=== PATIENT | female | born 1945 | race Caucasian/White ===

== ENCOUNTER 2016-07-11 16:35 | Emergency (ER) | payer OTHER ==
[~2016-07-11] VITALS: Ht 167.6 cm; Wt 72.2 kg
[~2016-07-11 16:35] MED LIST: ALBU1AER9 INH; ASPI81TA28 PO; ATV/1 PO; BECL0.3A INH; COEN1CAP7 PO; HYDR12.56 PO; LPT/20 PO; MELO15TA4 PO; METO50TA7 PO; MULTTAB PO; OMEP40CA41 PO; PRED1SUS3
[2016-07-11 16:43] VITALS: TEMP 36.9; Ht 167.6 cm; Wt 72.2 kg
[2016-07-11] MEDS ORDERED: PROAIR INH (17:00)
[2016-07-11] MEDS ORDERED: QVRINH80 INH (17:00)
[2016-07-11] MEDS ORDERED: HYDROmorphone INJ 0.5 MG/0.5 ML SYR IV STA (17:15)
[2016-07-11] MEDS ORDERED: ONDANSETRON INJ 2 MG/ML 2 ML VIAL IV STA (17:15)
--- NOTE | 2016-07-11 17:15 | DIAGNOSTIC IMAGING REPORT ---
CHEST ONE VIEW PORTABLE CLINICAL HISTORY: CHEST PAIN dyspnea COMPARISON STUDY: 01/21/2014 FINDINGS: Minimal parenchymal infiltrate left base. Lungs otherwise appear clear. Diaphragms smooth. Costophrenic angles are sharp. IMPRESSION: Small parenchymal infiltrate versus atelectasis left base. Electronically signed by: Anand Knox M.D. 07/11/2016 5:14 PM Dictated Date/Time: 07/11/2016 5:13 PM
[2016-07-11 17:29] LABS: BASO % 0.2 %; BASO ABS # 0.01 K/uL (0-0.2); COMPLETE YES; HEMATOCRIT 42.8 % (37-47); IG% 0.2 %; LYMPH % 32.2 %; LYMPH ABS # 1.65 K/uL (1.2-3.4); MEAN CELL VOLUME 87.9 fL (80-100); MEAN CORPUSCULAR HEMOGLOBIN 31.6 pg (25-34); MEAN PLATELET VOLUME 9.9 fL (7.4-10.4); MONO % 10.2 %; NEUT % 56.2 %; PLATELET COUNT 212 K/uL (130-400); RED BLOOD COUNT 4.87 M/uL (4.2-5.4); WHITE BLOOD COUNT 5.12 K/uL (4.8-10.8)
[2016-07-11 17:30] LABS: POINT OF CARE TROPONIN I 0.02 ng/ml (0-0.045)
[2016-07-11 17:40] VITALS: O2SAT 94
[2016-07-11 17:59] LABS: ALKALINE PHOSPHATASE 125 U/L (45-117); ALT/SGPT 47 U/L (12-78); AST/SGOT 36 U/L (15-37); BLOOD UREA NITROGEN 12 mg/dl (7-18); BUN/CREATININE RATIO 15.1 (10-20); CALCIUM 8.6 mg/dl (8.5-10.1); CARBON DIOXIDE 30 mmol/L (21-32); CHLORIDE 105 mmol/L (98-107); CKMB/CK RATIO 1.3 (0-3.0); CREATININE 0.78 mg/dl (0.60-1.20); GLUCOSE 98 mg/dl (70-99); POTASSIUM 3.9 mmol/L (3.5-5.1); SODIUM 141 mmol/L (136-145)
[2016-07-11 18:19] LABS: INR 0.9 (0.9-1.1); PARTIAL THROMBOPLASTIN RATIO 0.9
[2016-07-11] MEDS ORDERED: OPTIRAY 320 IV PRN (18:45)
--- NOTE | 2016-07-11 19:20 | DIAGNOSTIC IMAGING REPORT ---
CT ANGIOGRAPHY OF THE CHEST, PULMONARY EMBOLUS PROTOCOL CLINICAL HISTORY: Chest and back pain. COMPARISON STUDY: Chest radiograph performed earlier today and CT of the chest, abdomen pelvis December 16, 2012. TECHNIQUE: Following IV administration of 94 mL of Optiray-320, helical axial images of the chest were obtained utilizing the pulmonary embolus protocol. Maximal intensity projections and sagittal and coronal reformats were viewed on an independent 3D workstation. IV contrast was administered without complication. CT DOSE: 411.17 mGy.cm FINDINGS: No pulmonary emboli are identified. There is no evidence of thoracic aortic dissection. The size of the heart is at the upper limits of normal. There is no pericardial effusion. There are no enlarged thoracic lymph nodes. Bilateral lower lobe and lingular opacity is present. Central airways are patent. There is no pneumothorax. Bony thorax and upper abdomen are unremarkable with exception of fatty infiltration of the liver with sparing within the lateral segment. IMPRESSION: 1. No pulmonary emboli identified. 2. Bilateral lower lobe and lingular opacity which favors atelectasis. An infectious process could appear similar although is considered less likely. 3. Fatty infiltration of the liver with suspected sparing within the lateral segment. Electronically signed by: Joey Bryant M.D. 07/11/2016 7:19 PM Dictated Date/Time: 07/11/2016 7:06 PM
[2016-07-11] MEDS ORDERED: LEVOFLOXACIN 250 MG TAB PO STA (21:07)
[2016-07-11 21:15] VITALS: BP 118/59; PULSE 60; O2SAT 99
[2016-07-11] MEDS ORDERED: NORCO 5/325MG HOME PACK PO ONE (21:15)
[2016-07-11] MEDS ORDERED: HYDR-5688 PO (21:21)
[2016-07-11] MEDS ORDERED: LEVO-366 PO (21:21)
--- NOTE | 2016-07-12 01:03 | EMERGENCY ROOM VISIT NOTE ---
History Report prepared by Laurel: Kym Bravo Under the Supervision of: Dr. Derik Renner M.D. First contact with patient: 16:49 Chief Complaint: CHEST PAIN Stated Complaint: CHEST AND BACK PAIN- PHYSICIAN REFERRED History of Present Illness The patient is a 71 year old female who presents to the Emergency Room with complaints of constant central upper back pain that began yesterday. She states that the pain feels like it is behind her sternum. The pain is worse with inhalation, sneezing, coughing, blowing her nose, and position changes. Her pain increases to a 10/10 with movement. Her had to tie her shoes this evening because she could not lean over. Laying on her back also makes it ache. She slept in a chair last night. Per patient's , the patient has been packing boxes to help her mother over the past few weeks. She has not done any particularly heavy lifting. She was not packing any boxes this week. She does not recall any other straining or exertion that could have caused her pain. Denies any recent falls. Earlier today, she was seen by her PCP and had an EKG and blood work. Per PCP recommendation, the patient took a Meloxicam this evening which she already had at home. It did help slightly, but she still has significant pain with movement. This evening, she was called by the office and referred to the ED for additional testing. The patient reports a family history of coronary artery disease. There is no family history of blood clots or aneurysms. Pt denies LOC, headache, fevers, chills, diaphoresis, visual changes , neck pain, chest pain, nausea, vomiting, abdominal pain, melena, hematochezia , urinary symptoms, numbness, weakness, lymphadenopathy, rash, or other complaints. Source of History: patient Onset: yesterday Position: back (central upper) Symptom Intensity: 10/10 with movement Timing: constant Modifying Factors (Worsening): movement, other (inhalation, coughing, sneezing, blowing nose, position changes) Modifying Factors (Relieving): other (Meloxicam) Review of Systems See HPI for pertinent positives and negatives. A total of ten systems were reviewed and were otherwise negative. Past Medical & Surgical Medical Problems: (1) Anxiety State Nos (2) Asthma, Unspecified (3) Esophageal Reflux (4) Heart disease (5) HYPERLIPIDEMIA NEC/NOS (6) Hyperlipidemia Nec/Nos (7) Hypertension Nos Family History Cancer Heart disease Hypertension Social History Smoking Status: Former Smoker Alcohol Use: none Drug Use: none Marital Status: Housing Status: lives with significant other Occupation Status: employed Current/Historical Medications Scheduled Aspirin (Aspirin Ec), 81 MG PO QAM Atorvastatin (Atorvastatin Calcium), 20 MG PO HS Coenzyme Q10 (Ubidecarenone) (Coq10), 1 CAP PO QPM Hydrochlorothiazide (Hctz), 12.5 MG PO QAM Levofloxacin (Levaquin), 500 MG PO DAILY Metoprolol Succ (Toprol Xl) (Toprol-Xl), 50 MG PO QAM Multivitamins/Minerals (Mvi With Minerals), 1 PKT PO QAM Omeprazole (Prilosec), 40 MG PO BID Scheduled PRN Beclomethasone Dip (Qvar), 2 PUFF INH BID PRN for SOB/Wheezing Hydrocodone/Acetaminophen 5MG/325MG ([place] 5MG/325MG), 1-2 TABS PO Q6H PRN for Pain Lorazepam (Ativan), 1 MG PO TID PRN for Anxiety Meloxicam (Mobic), 15 MG PO DAILY PRN for Pain [Proair], 2 PUFF INH QID PRN for Wheezing Allergies Coded Allergies: Milk (Verified Allergy, Unknown, 02/23/15) Pseudoephedrine (Verified Allergy, Unknown, 02/23/15) Physical Exam Vital Signs Date Time Temp Pulse Resp B/P Pulse Ox O2 Delivery O2 Flow Rate FiO2 07/11/16 21:15 60 18 118/59 99 Room Air 07/11/16 18:32 67 20 99/61 95 Room Air 07/11/16 17:40 94 Room Air 07/11/16 17:40 94 Room Air 07/11/16 16:59 79 07/11/16 16:43 36.9 73 20 140/68 95 Room Air Physical Exam GENERAL: Awake, alert, uncomfortable-appearing, in no distress HENT: Normocephalic, atraumatic. Oropharynx unremarkable. EYES: Normal conjunctiva. Sclera non-icteric. NECK: Supple. No nuchal rigidity. FROM. No JVD. RESPIRATORY: Clear to auscultation. CARDIAC: Regular rate, normal rhythm. Extremities warm and well perfused. Pulses equal. ABDOMEN: Soft, non-distended. No tenderness to palpation. No rebound or guarding. No masses. RECTAL: Deferred. MUSCULOSKELETAL: Chest examination reveals no tenderness. The back is symmetrical on inspection without obvious abnormality. Thoracic midline tenderness to palpation. There is no CVA tenderness to palpation. No joint edema. LOWER EXTREMITIES: Calves are equal size bilaterally and non-tender. No edema. No discoloration. NEURO: Normal sensorium. No sensory or motor deficits noted. SKIN: No rash or jaundice noted. Medical Decision & Procedures ER Provider Diagnostic Interpretation: Radiology results as stated below per my review and radiologist interpretation CHEST ONE VIEW PORTABLE CLINICAL HISTORY: CHEST PAIN dyspnea COMPARISON STUDY: 01/21/2014 FINDINGS: Minimal parenchymal infiltrate left base. Lungs otherwise appear clear. Diaphragms smooth. Costophrenic angles are sharp. IMPRESSION: Small parenchymal infiltrate versus atelectasis left base. Electronically signed by: Anand Knox M.D. 07/11/2016 5:14 PM Dictated Date/Time: 07/11/2016 5:[address] ANGIOGRAPHY OF THE CHEST, PULMONARY EMBOLUS PROTOCOL CLINICAL HISTORY: Chest and back pain. COMPARISON STUDY: Chest radiograph performed earlier today and CT of the chest, abdomen pelvis December 16, 2012. TECHNIQUE: Following IV administration of 94 mL of Optiray-320, helical axial images of the chest were obtained utilizing the pulmonary embolus protocol. Maximal intensity projections and sagittal and coronal reformats were viewed on an independent 3D workstation. IV contrast was administered without complication. CT DOSE: 411.17 mGy.cm FINDINGS: No pulmonary emboli are identified. There is no evidence of thoracic aortic dissection. The size of the heart is at the upper limits of normal. There is no pericardial effusion. There are no enlarged thoracic lymph nodes. Bilateral lower lobe and lingular opacity is present. Central airways are patent. There is no pneumothorax. Bony thorax and upper abdomen are unremarkable with exception of fatty infiltration of the liver with sparing within the lateral segment. IMPRESSION: 1. No pulmonary emboli identified. 2. Bilateral lower lobe and lingular opacity which favors atelectasis. An infectious process could appear similar although is considered less likely. 3. Fatty infiltration of the liver with suspected sparing within the lateral segment. Electronically signed by: Joey Bryant M.D. 07/11/2016 7:19 PM Dictated Date/Time: 07/11/2016 7:06 PM Laboratory Results 07/11/16 17:05 Red Blood Count 4.87, Mean Corpuscular Volume 87.9, Mean Corpuscular Hemoglobin 31.6, Mean Corpuscular Hemoglobin Concent 36.0, Mean Platelet Volume 9.9, Neutrophils (%) (Auto) 56.2, Lymphocytes (%) (Auto) 32.2, Monocytes (%) (Auto) 10.2, Eosinophils (%) (Auto) 1.0, Basophils (%) (Auto) 0.2, Neutrophils # (Auto ) 2.88, Lymphocytes # (Auto) 1.65, Monocytes # (Auto) 0.52, Eosinophils # (Auto ) 0.05, Basophils # (Auto) 0.01 07/11/16 17:05 Test 07/11/16 17:05 07/11/16 17:10 07/11/16 18:00 White Blood Count 5.12 K/uL (4.8-10.8) Red Blood Count 4.87 M/uL (4.2-5.4) Hemoglobin 15.4 g/dL (12.0-16.0) Hematocrit 42.8 % (37-47) Mean Corpuscular Volume 87.9 fL (80-100) Mean Corpuscular Hemoglobin 31.6 pg (25-34) Mean Corpuscular Hemoglobin Concent 36.0 g/dl (32-36) Platelet Count 212 K/uL (130-400) Mean Platelet Volume 9.9 fL (7.4-10.4) Neutrophils (%) (Auto) 56.2 % Lymphocytes (%) (Auto) 32.2 % Monocytes (%) (Auto) 10.2 % Eosinophils (%) (Auto) 1.0 % Basophils (%) (Auto) 0.2 % Neutrophils # (Auto) 2.88 K/uL (1.4-6.5) Lymphocytes # (Auto) 1.65 K/uL (1.2-3.4) Monocytes # (Auto) 0.52 K/uL (0.11-0.59) Eosinophils # (Auto) 0.05 K/uL (0-0.5) Basophils # (Auto) 0.01 K/uL (0-0.2) RDW Standard Deviation 42.4 fL (36.4-46.3) RDW Coefficient of Variation 13.2 % (11.5-14.5) Immature Granulocyte % (Auto) 0.2 % Immature Granulocyte # (Auto) 0.01 K/uL (0.00-0.02) Anion Gap 6.0 mmol/L (3-11) Est Creatinine Clear Calc Drug Dose 69.2 ml/min Estimated GFR () 89.9 Estimated GFR (Non- 77.6 BUN/Creatinine Ratio 15.1 (10-20) Calcium Level 8.6 mg/dl (8.5-10.1) Total Bilirubin 1.1 mg/dl (0.2-1) Aspartate Amino Transf (AST/SGOT) 36 U/L (15-37) Alanine Aminotransferase (ALT/SGPT) 47 U/L (12-78) Alkaline Phosphatase 125 U/L (45-117) Total Creatine Kinase 139 U/L (26-192) Creatine Kinase MB 1.8 ng/ml (0.5-3.6) Creatine Kinase MB Ratio 1.3 (0-3.0) Total Protein 6.9 gm/dl (6.4-8.2) Albumin 3.6 gm/dl (3.4-5.0) Lipase 288 U/L (73-393) Chemistry Specimen Hemolysis Bedside D-Dimer 317 ng/mlFEU (0-450) Bedside Troponin I 0.020 ng/ml (0-0.045) Prothrombin Time 10.0 SECONDS (9.0-12.0) Prothromb Time International Ratio 0.9 (0.9-1.1) Activated Partial Thromboplast Time 23.6 SECONDS (21.0-31.0) Partial Thromboplastin Ratio 0.9 Direct Bilirubin 0.2 mg/dl (0-0.2) Laboratory results reviewed by me Medications Administered Medications (Trade) Dose Ordered Sig/Felisa Route Start Time Stop Time Status Last Admin Dose Admin Hydromorphone HCl (Dilaudid Inj) 0.5 mg NOW STAT IV 07/11/16 17:15 07/11/16 17:16 DC 07/11/16 17:29 0.5 MG Ondansetron HCl (Zofran Inj) 4 mg NOW STAT IV 07/11/16 17:15 07/11/16 17:16 DC 07/11/16 17:28 4 MG Acetaminophen/ Hydrocodone Bitart ([place] 5/325mg Home Pack) 1 homepack UD ONCE PO 07/11/16 21:15 07/11/16 21:16 DC 07/11/16 21:14 1 HOMEPACK Levofloxacin (Levaquin Tab) 500 mg NOW STAT PO 07/11/16 21:07 07/11/16 21:08 DC 07/11/16 21:14 500 MG ECG Indication: back/shoulder pain Rate (beats per minute): 76 Rhythm: normal sinus Findings: no acute ischemic change, no ectopy ED Course 1708: The patient was evaluated in room C10. A complete history and physical exam was performed. 1714: Ordered Zofran Inj 4 mg IV, Dilaudid Inj 0.5 mg IV. 1829: I reassessed the patient. She agreed to a CT scan. 2046: I reevaluated the patient. She was feeling better. Discussed results and discharge instructions: She verbalized understanding and agreement. The patient is ready for discharge. 2106: Ordered Levaquin tab 500 mg PO. 2114: Ordered [place] 5/325 mg homepack PO. Medical Decision Triage Nursing notes reviewed. The patient's presentation and history were concerning for pleuritic back pain. Etiologies such as musculoskeletal, cardiac ischemia, aortic dissection, pulmonary embolism, pneumonia, pneumothorax, infections, gastrointestinal, as well as others were entertained. Patient was evaluated. She was uncomfortable only with movement or deep breathing. She was given Dilaudid and Zofran. On reassessment she was feeling better. Blood work was unremarkable. ECG was negative for ischemic change. The patient had an abnormal chest x-ray. She was sent for CT imaging. The patient felt better after the Dilaudid. Her CBC, chemistry panel, LFTs, lipase , d-dimer, and cardiac markers are negative. The patient's chest x-ray was concerning for possible infiltrate. She underwent chest CT imaging given the level of discomfort. This question some atelectatic change versus consolidation. Given the pleuritic type of pain that she is having with deep breathing I suspect this is early consolidative change. The patient was given oral Levaquin. I discussed close outpatient follow-up. She was also given hydrocodone to go home with. If she worsens in any way she will be back. She is supposed to follow-up with her primary physician tomorrow. By the evaluation outlined above other emergent etiologies such as those listed in the differential, as well as others, were deemed relatively unlikely. The patient and were informed about the findings as listed above. All questions were answered and they were pleased with the treatment. Return instructions were outlined and the patient was discharged in stable condition. The patient was referred to her PCP for follow-up tomorrow for a recheck of the current condition. The chart was completed utilizing [employer] voice recognition software. Grammatical errors, random word insertions, pronoun errors, and incomplete sentences are an occasional consequence of this system due to software limitations, ambient noise, and hardware issues. Any formal questions or concerns about the content, text, or information contained within the body of this dictation should be directly addressed to the physician for clarification. Impression Primary Impression: Back pain Additional Impression: Left pulmonary infiltrate on CXR Scribe Attestation The scribe's documentation has been prepared under my direction and personally reviewed by me in its entirety. I confirm that the note above accurately reflects all work, treatment, procedures, and medical decision making performed by me. Departure Information Dispostion Home / Self-Care Prescriptions Levofloxacin (Levaquin) 500 Mg Tab 500 MG PO DAILY for 7 Days, #7 TAB Prov: Derik Renner MD 07/11/16 Hydrocodone/Acetaminophen 5MG/325MG ([place] 5MG/325MG) Tab 1-2 TABS PO Q6H Y for Pain, #12 TAB Prov: Derik Renner MD 07/11/16 Referrals Phi Mcdaniels M.D. (PCP) Patient Instructions My [facility] Additional Instructions Levafloxacin(Levaquin) 500mg: Take one pill daily for 7 days for your infection. All antibiotics can cause diarrhea. If this occurs and you feel worse or it does not resolve in 1-2 days follow up with your doctor or return to the Emergency Department as this could be signs of serious underlying problems. Any medication can cause an allergic reaction, stop the pills immediately and return to the ER for rash, hives, breathing difficulties, or swelling. Hydrocodone/acetaminophen 5/325mg: Take 1-2 pills every 6 hours as needed for pain. Avoid additional Acetaminophen/Tylenol, alcohol, operating machinery or dangerous equipment, working on ladders or roofs, DRIVING, or situations where being under the influence may be dangerous. It is recommended to use a stool softener such as Colace, 100mg twice daily while taking this medication to avoid constipation. Ibuprofen(Motrin, Advil) may be used for fever or pain. Use 600mg every six hours as needed. Take with food. Avoid using more than 2400mg in a 24 hour period. Do not use 2400mg per day for more than three consecutive days without physician direction. Prolonged inappropriate use can lead to stomach upset or ulcers. Rest and drink plenty of fluids. Avoid strenuous activity until your symptoms resolve and your breathing returns to normal. Return to the ER for chest pain, difficulty breathing, persistent fevers, vomiting, worsening of your condition, or as needed. Follow up with your primary physician tomorrow for a recheck of the current condition. Problem Qualifiers
== END 2016-07-11 21:27 | disposition home or self-care (01) ==
LOC: C.EDB 16:37 → C.EDC 21:27
DX: M54.6 Pain in thoracic spine (principal); R91.8 Other nonspecific abnormal finding of lung field; F41.9 Anxiety disorder, unspecified; J45.909 Unspecified asthma, uncomplicated; K21.9 Gastro-esophageal reflux disease without esophagitis; E78.5 Hyperlipidemia, unspecified; I10 Essential (primary) hypertension; Z87.891 Personal history of nicotine dependence; Z82.49 Family history of ischemic heart disease and other diseases of the circulatory system; Z79.82 Long term (current) use of aspirin